=== PATIENT | female | born 1985 | race Hispanic/Latino ===

== ENCOUNTER 2018-11-12 12:44 | Outpatient (CLI) | payer MEDICARE ==
--- NOTE | 2018-11-12 14:23 | ULT ---
THYROID ULTRASOUND: 11/12/2018 HISTORY: Thyroid nodules. Hypothyroidism. COMPARISON: None available. FINDINGS: The right lobe of the thyroid gland measures 5.5 cm x 1.7 cm x 1.3 cm with the left lobe measuring 5. 2 cm x 1.6 cm x 1.1 cm. The thyroid isthmus measures 0.24 cm in AP dimension, which is within normal limits. There are at least four scattered small, hypoechoic nodules seen in the right lobe of the thyroid gla nd, involving the superior and inferior thyroid lobe, as well as the mid portion of the right lobe of the thyroid gland. The largest is noted in the inferior pole, right lobe of the thyroid gland, chapis uring 0.4 cm. There are also scattered hypoechoic nodules within the mid portion, inferior pole, lef t lobe of the thyroid gland, the largest measuring 0.5 cm in the inferior pole. Also, within the inf erior pole, left lobe of the thyroid gland, is a heterogeneous nodule, measuring 1.2 cm x 0.5 cm. IMPRESSION: 1. Multinodular thyroid gland, with the largest heterogeneous nodule seen within the inferior pole, left lobe of the thyroid gland, measuring 1.2 cm. 2. TI-RADS level 3-Mildly suspicious thyroid nodules. RECOMMENDATIONS: Fine needle aspiration of nodules greater than or equal to 2.5 cm and follow-up evaluation of the nod ules is recommended if the nodules are greater than or equal to 1.5 cm. Direct comparison with prior thyroid ultrasound is recommended if these prior studies can be obtained for direct comparison. POS: CARRILLO
--- NOTE | 2018-11-12 15:50 | RAD ---
THORACIC SPINE THREE VIEWS: 11/12/18 HISTORY: Failed surgical back syndrome. Postoperative changes are noted related to stabilization of an L1 compression injury with bilateral p edicle screws at T12, L1 and L2. The remainder of the vertebral bodies are normal in appearance. IMPRESSION: Postoperative changes of the thoracolumbar spine. POS: TPC
--- NOTE | 2018-11-12 15:51 | RAD ---
LUMBAR SPINE 4 VIEWS WITH FLEXION AND EXTENSION: HISTORY: Low back pain. Prior fracture and internal fixation. FINDINGS: Five lumbar-type vertebrae. Bilateral pedicle screws and vertical rods at the T12, L1, and L2 levels . No perihardware lucency. Compression of the L1 superior end plate with mild retropulsion is uncha nged from the CT on 08/24/2014. Other vertebral body heights were maintained. Little motion upon fl exion and extension. No abnormal translational motion. IMPRESSION: Postoperative changes lumbar spine with chronic healing L1 compression fracture. No acute osseous ab normalities are demonstrated. POS: SABAS
--- NOTE | 2018-11-12 16:10 | CT ---
CT LUMBAR SPINE 11/12/18 PROVIDED CLINICAL HISTORY: Back pain. FINDINGS: Comparison 08/24/14. Lumbar alignment remains normal. Remote superior end plate compression deformity of L1 is redemonstra jak without additional loss of vertebral body height. Bilateral pedicle screws and vertical interconn ecting rods span T12 through L2 without evidence for hardware loosening or migration. There is no significant central canal or foraminal narrowing apparent by CT. Laminectomy changes are again seen at L1. The visualized extraspinal soft tissues demonstrate a stable unenhanced CT appearan ce. No lytic or blastic lesions are seen. The visualized portions of both sacroiliac joints appear un remarkable. IMPRESSION: Remote posttraumatic and postoperative changes involving the thoracolumbar spine, appearing stable wi th respect to 08/24/14. POS: TPC
--- NOTE | 2018-11-12 16:15 | CT ---
CT OF THE THORACIC SPINE: 11/12/18 HISTORY: Failed back surgical syndrome. COMPARISON: None. TECHNIQUE: A CT of the thoracic spine is performed without contrast. Reformatted images are submitted for interp retation. FINDINGS: The visualized mediastinal structures are unremarkable. Minimal dependent atelectatic changes in the lung parenchyma. Trachea and central bronchi are patent. The visualized solid abdominal viscera is u nremarkable. No retroperitoneal mass, lymphadenopathy or hematoma. The central spinal canal is patent. Neural foramina are patent. There are bilateral transpedicular screws at T12, L1 and L2. There is mild loss of vertebral body hei ght with retropulsion. No acute fracture. No perihardware lucency. Hypertrophy of the posterior eleme nts at the level of the fusion is noted. Laminectomy defect at the T12-L1 level is identified. IMPRESSION: 1. No evidence of an acute thoracic spine fracture. 2. Uncomplicated fusion from T12 to L2. There is loss of vertebral body height at L1. Please ref er to separate lumbar spine CT report for further detail. Correlation made with a lumbar spine CT fro m 08/24/14 does not demonstrate appreciable change. POS: CET
== END 2018-11-12 12:45 | disposition home or self-care (01) ==
LOC: BICULT 12:44
PROVIDERS: ATTEND Internal Medicine
DX: M96.1 Postlaminectomy syndrome, not elsewhere classified (principal); M54.16 Radiculopathy, lumbar region; E03.9 Hypothyroidism, unspecified; E04.2 Nontoxic multinodular goiter; M43.25 Fusion of spine, thoracolumbar region; Z98.890 Other specified postprocedural states; S32.019D Unspecified fracture of first lumbar vertebra, subsequent encounter for fracture with routine healing
CPT/HCPCS: 72072; 72120; 72128; 72131; 76536

== ENCOUNTER 2019-05-20 10:56 | Outpatient (CLI) | payer MEDICARE ==
--- NOTE | 2019-05-20 11:34 | ULT ---
GALLBLADDER ULTRASOUND: HISTORY: Right upper quadrant abdominal pain FINDINGS: The liver demonstrates homogeneous echotexture without focal mass or intrahepatic biliary ductal dila tation. The gallbladder is somewhat contracted. No gallstones, gallbladder wall thickening or pericholecystic fluid are seen. The right kidney is normal. The pancreas is not satisfactorily visualized due to overlying bowel gas. The common duct [id number] in diameter. No free fluid is seen in the Parisi's pouch. IMPRESSION: No significant abnormalities are seen.
== END 2019-05-20 10:57 | disposition home or self-care (01) ==
LOC: SCSULT 10:56
PROVIDERS: ATTEND Family Medicine
DX: R10.11 Right upper quadrant pain (principal)
CPT/HCPCS: 76705

== ENCOUNTER 2019-11-03 13:24 | Outpatient (CLI) | payer MEDICARE ==
--- NOTE | 2019-11-03 15:32 | ULT ---
THYROID ULTRASOUND: INDICATIONS: Follow up thyroid nodules. COMPARISON: Thyroid ultrasound exam dated 11/12/2018. FINDINGS: Right lobe measures 5.2 x 1.2 x 1.6 cm. Left lobe measures 4.7 x 1.2 x 1.7 cm. Left lobe reveals a small heterogeneous isoechoic nodule, measuring 0.5 x 0.5 x 0.9 mm. This oblong-s haped nodule appears stable. There is a small adjacent cystic nodule in the inferior left lower lobe, measuring 0.5 mm, stable. Tiny nodule in the inferior right lobe measuring 3 to 4 mm appears stable. This appears predominantly cystic. IMPRESSION: Stable thyroid ultrasound. The more complex, oblong-shaped nodule in the inferior left lower lobe is unchanged. Recommend continued annual ultrasound evaluation. POS: Crow
== END 2019-11-03 13:25 | disposition home or self-care (01) ==
LOC: BICULT 13:24
PROVIDERS: ATTEND Otolaryngology Plastic Surgery within the Head & Neck
DX: E04.1 Nontoxic single thyroid nodule (principal)
CPT/HCPCS: 76536

== ENCOUNTER 2020-03-27 09:33 | Outpatient (CLI) | payer MEDICARE ==
--- NOTE | 2020-03-27 10:13 | ULT ---
GALLBLADDER ULTRASOUND: HISTORY: Right upper quadrant abdominal pain FINDINGS: The liver demonstrates homogeneous echotexture without focal mass or intrahepatic biliary ductal dila tation. No gallstones, gallbladder wall thickening or pericholecystic fluid are seen. The right kidney and visualized portions of the pancreas are normal. The common duct [id number] in diameter. No free fluid is seen in the Parisi's pouch. IMPRESSION: Normal exam.
== END 2020-03-27 09:34 | disposition home or self-care (01) ==
LOC: BICULT 09:33
PROVIDERS: ATTEND Internal Medicine Gastroenterology
DX: R10.11 Right upper quadrant pain (principal)
CPT/HCPCS: 76705

== ENCOUNTER 2020-04-04 07:55 | Outpatient (CLI) | payer MEDICARE ==
--- NOTE | 2020-04-04 11:29 | NM ---
Exam: Nuclear medicine HIDA scan with ejection fraction HISTORY: Right upper quadrant pain TECHNIQUE: Patient was administered 5.2 mCi of technetium 90 9M mebrofenin intravenously. Ejection fr action was determined after the patient was administered 8 out of ensure orally. FINDINGS: Appropriate uptake of the radiotracer by the hepatic parenchyma. Appropriate excretion into the intrahepatic biliary system. There is passage of radiotracer from the common bile duct into small bowel loops. Gallbladder localization with radiotracer is noted. Ejection fraction: 69% IMPRESSION: 1. No scintigraphic evidence of acute cholecystitis. 2. 69% ejection fraction.
== END 2020-04-04 07:56 | disposition home or self-care (01) ==
LOC: NM 07:55
PROVIDERS: ATTEND Physician Assistant Medical
DX: R10.11 Right upper quadrant pain (principal); R11.2 Nausea with vomiting, unspecified
CPT/HCPCS: 78227; A9537

== ENCOUNTER 2020-11-21 10:00 | Outpatient (CLI) | payer MEDICARE ==
--- NOTE | 2020-11-21 14:50 | ULT ---
ULTRASOUND THYROID: Date: 11/21/2020 HISTORY: 35-year-old female follow-up thyroid nodules "E04.1, thyroid (cystic) nodule and OS" COMPARISON: 11/12/2018 and 11/03/2019 FINDINGS: Thyroid dimensions: Isthmus: 0.3 AP Right lobe: 5.0 x 1.6 x 1.6 cm. Left lobe: 4.7 x 1.2 x 1.7 cm Thyroid parenchymal echogenicity:Normal. Number of thyroid nodules:Multiple. At least 2 on the right and at least 3 on the left Nodule # 1: Location: Left lower pole: Size: 0.7 x 0.4 x 0.5 cm. Composition: Mixed cystic and solid, 1 point. Echogenicity: Hypoechoic, 2 points Shape: Wider than tall, 0 points Margin: Smooth: 0 points Echogenic foci: None: 0 points It is noted that this lesion was measured as 1.2 x 0.5 x 0.5 cm on 11/12/2018, and measured as 1 x 0.5 x 0.6 cm on 11/03/2019. Reviewing those images, it is noted that the 1.2 cm and 1 cm craniocaudal dimensions were measured on the sagittal images. On the current sagittal images of that nodule, the most superior and most inferior portions of the le ghassan have developed cystic components that were not included on the current craniocaudal dimension of 0.7 cm. If no cystic components are included, the critical dimension is 1.2 cm. This is still smal ler than the 1.5 cm criterion that would necessitate follow-up. Total points: 3 TIRADS category:3: Mildly suspicious. Recommendation: Fine-needle aspiration if greater than or equal to 2.5 cm. Follow if greater than or equal to 1.5 cm (at 1, 3, and 5 years) Nodule is less than 1.5 cm. Therefore no follow-up is recommended. All of the other small nodules bilaterally are smaller than that, and do not have any more suspicious features than the one described above. IMPRESSION: Multiple small bilateral thyroid nodules. No follow-up ultrasound and no fine-needle aspiration are r ecommended.
== END 2020-11-21 10:01 | disposition home or self-care (01) ==
LOC: BICULT 10:00
PROVIDERS: ATTEND Otolaryngology Plastic Surgery within the Head & Neck
DX: E04.2 Nontoxic multinodular goiter (principal)
CPT/HCPCS: 76536

== ENCOUNTER 2022-02-10 14:18 | Outpatient (CLI) | payer MEDICARE | END 2022-02-10 14:19 | disposition home or self-care (01) | LOC: BICULT 14:18 | PROVIDERS: ATTEND Otolaryngology Plastic Surgery within the Head & Neck | DX: E04.1 Nontoxic single thyroid nodule (principal) | CPT/HCPCS: 76536 ==

== ENCOUNTER 2022-08-26 07:39 | Outpatient (CLI) | payer MEDICARE, MEDICAID | END 2022-08-26 07:40 | disposition home or self-care (01) | LOC: NM 07:39 | PROVIDERS: ATTEND Internal Medicine Gastroenterology | DX: R11.2 Nausea with vomiting, unspecified (principal); F12.188 Cannabis abuse with other cannabis-induced disorder; K30 Functional dyspepsia | CPT/HCPCS: 78264; A9541 ==

== ENCOUNTER 2025-04-13 09:35 | Outpatient (CLI) | payer MEDICARE | END 2025-04-13 09:36 | disposition home or self-care (01) | LOC: BICULT 09:35 | PROVIDERS: ATTEND Internal Medicine | DX: E04.2 Nontoxic multinodular goiter (principal); E03.9 Hypothyroidism, unspecified | CPT/HCPCS: 76536 ==